=== PATIENT | female | born 1990 | race Caucasian/White ===

== ENCOUNTER 2016-11-18 08:36 | Emergency (ER) | payer OTHER ==
[~2016-11-18] VITALS: Ht 157.5 cm; Wt 79.0 kg
[~2016-11-18 08:36] MED LIST: CEPH-443 PO
[2016-11-18 08:42] VITALS: Ht 157.5 cm; Wt 79.0 kg
[2016-11-18] MEDS ORDERED: morphine 4 MG/ML VIAL IV STA (09:20)
[2016-11-18] MEDS ORDERED: ONDANSETRON 4 MG INJ IV STA (09:20)
--- NOTE | 2016-11-18 10:29 | RADRPT ---
PROCEDURE: OBSTETRICAL ULTRASOUND CLINICAL INDICATION: Vaginal Bleed () TECHNIQUE: Multiple sonographic images of the pelvis were obtained utilizing a transabdominal and endovaginal technique. The images were reviewed on a PACS workstation. COMPARISON: Obstetrical ultrasound from 10/21/2016 LMP: 08/15/2016 FINDINGS: An intrauterine gestational sac is again identified although the twin poles seen previously ar e no longer identified and there is new debris in the gestational sac. The right ovary is not visualized. The left ovary measures 3.0 x 2.5 x 2.2 cm. There is normal vascu lar flow in the left ovary. No significant ovarian lesions are seen. No significant pelvic free fluid is identified. IMPRESSION: An intrauterine gestational sac is again identified although the twin pole also seen previousl y are no longer present and there is new debris in the gestational sac. Findings are consistent wit h early failed twin . Continued sonographic follow-up is recommended. Nonvisualization of the right ovary. RPTAT: EE Physician Gerson Date Time Electronically viewed and signed by Physician Gerson on 11/18/2016 10:29 /
--- NOTE | 2016-11-18 10:32 | ERD ---
ER Documentation Chief Complaint Date/Time DATE: 11/18/16 TIME: 10:28 Chief Complaint 9-10 weeks pregnat with pelvic pain, us : demise HPI This is a 25-year-old who presents to the emergency department today for vaginal bleeding started this morning. Patient states that she was seen here in October and had a demise. She stated that she did not want a D&C at that time wanted to let the fetus pass on its own. She stated that the fetus had not passed yet and therefore she decided to proceed with a D&C however she has not been able to get an appointment with Dr. Thomas. She is here today because she has a lot of pelvic cramping. Is not taking any medication for the pain. Denies any fevers or chills or nausea or vomiting. ROS All systems reviewed and are negative except as per history of present illness. Medications Home Meds Active Scripts Cephalexin* (Keflex*) 500 Mg Capsule, 500 MG PO QID for 7 Days, CAP Prov:AUSTIN BENITEZ PA-C 11/18/16 Hydrocodone/Acetaminophen (Renwick 5-325 Tablet) 1 Each Tablet, 1 TAB PO Q6H Y for PAIN, #20 TAB Prov:AUSTIN BENITEZ PA-C 11/18/16 Cephalexin* (Keflex*) 500 Mg Capsule, 500 MG PO QID for 7 Days, CAP Prov:TALON DONALDSON PA-C 10/21/16 Allergies Allergies: Coded Allergies: No Known Allergy (Unverified , 10/21/16) PMhx/Soc Hx Alcohol Use: No Hx Substance Use: No Physical Exam Vitals Vital Signs Date Time Temp Pulse Resp B/P Pulse Ox O2 Delivery O2 Flow Rate FiO2 11/18/16 08:42 98.1 74 20 136/89 99 Physical Exam Const: Mild distress Head: Atraumatic Eyes: Normal Conjunctiva ENT: Normal External Ears, Nose and Mouth. Neck: Full range of motion..~ No meningismus. Resp: Clear to auscultation bilaterally Cardio: Regular rate and rhythm, no murmurs Abd: Soft, suprapubic tenderness, non distended. Normal bowel sounds. No Right lower quadrant pain. No left lower quadrant pain. Skin: No petechiae or rashes Back: No midline or flank tenderness Ext: No cyanosis, or edema Neur: Awake and alert Psych: Normal Mood and Affect Result Diagram: 11/18/16930 Results 24 hrs Laboratory Tests Test 11/18/16 09:27 11/18/16 09:31 Urine Bacteria FEW Urine Bilirubin NEGATIVE Urine Clarity BLOODY Urine Color RED Urine Epithelial Cells RARE Urine Glucose 0.1%% Urine Hemoglobin 3+ Urine Ketones 15 Urine Leukocyte Esterase NEGATIVE Urine Microscopic RBC >200/HPF Urine Microscopic WBC 0-2/HPF Urine Nitrite POSITIVE Urine Specific [place] 1.020 Urine Total Protein 2+ Urine Urobilinogen 1.0 E.U./dL Urine pH 6.0 Basophils # 0.110^3/ul Basophils % 0.4% Beta HCG, Quantitative 1007.8mIU/ml Eosinophils # 0.010^3/ul Eosinophils % 0.2% Hematocrit 40.8% Hemoglobin 13.9g/dl Lymphocytes # 1.910^3/ul Lymphocytes % 15.8% Mean Corpuscular Hemoglobin 30.5pg Mean Corpuscular Hemoglobin Concent 34.1g/dl Mean Corpuscular Volume 89.4fl Mean Platelet Volume 8.2fl Monocytes # 0.510^3/ul Monocytes % 3.8% Neutrophils # 9.610^3/ul Neutrophils % 79.8% Nucleated Red Blood Cells # 0.010^3/ul Nucleated Red Blood Cells % 0.0/100WBC Platelet Count 26481^3/UL Red Blood Count 4.5610^6/ul Red Cell Distribution Width 13.5% White Blood Count 12.110^3/ul Current Medications Medications (Trade) Dose Ordered Sig/Ada Route PRN Reason Start Time Stop Time Status Last Admin Dose Admin Morphine Sulfate (morphine) 4 mg ONCE STAT IV 11/18/16 09:20 11/18/16 09:22 DC 11/18/16 09:35 Ondansetron HCl (Zofran Inj) 4 mg ONCE STAT IV 11/18/16 09:20 11/18/16 09:22 DC 11/18/16 09:35 Patient: FLORENCIA ANGEL : 1990 Age: 26 Sex: F MR #: [id number] DOS: 11/18/16919 Ordering MD: AUSTIN BENITEZ PA-C Location: [facility] Room/Bed: PROCEDURE: OBSTETRICAL ULTRASOUND CLINICAL INDICATION: Vaginal Bleed () TECHNIQUE: Multiple sonographic images of the pelvis were obtained utilizing a transabdominal and endovaginal technique. The images were reviewed on a PACS workstation. COMPARISON: Obstetrical ultrasound from 10/21/2016 LMP: 08/15/2016 FINDINGS: An intrauterine gestational sac is again identified although the twin poles seen previously are no longer identified and there is new debris in the gestational sac. The right ovary is not visualized. The left ovary measures 3.0 x 2.5 x 2.2 cm. There is normal vascular flow in the left ovary. No significant ovarian lesions are seen. No significant pelvic free fluid is identified. IMPRESSION: An intrauterine gestational sac is again identified although the twin pole also seen previously are no longer present and there is new debris in the gestational sac. Findings are consistent with early failed twin . Continued sonographic follow-up is recommended. Nonvisualization of the right ovary. RPTAT: EE Physician Gerson Date Time Electronically viewed and signed by Georges Patel Physician on 11/18/2016 10:29 RA/ CC: AUSTIN BENITEZ PA-C Procedures/MDM This is 26-year-old female who presents to emergency department today complaining of vaginal bleeding that started this morning as well as lower abdominal cramping. Patient indicated that she was approximately 9010 weeks . Patient was seen here in the emergency department on October 21 and had a full OB workup after coming in for abdominal pain and cramping for a day. An obstetrical ultrasound at that time showed twin and treatment with no heart tones identified. The findings were compatible with failed . Patient also had a left ovarian cyst as well as a urinary tract infection. The patient's new complaints of vaginal bleeding today did obtain a complete OB workup with the exception of an Rh status as patient had been her previous visit and her blood type is O+. There is no indication for RhoGAM. She was given Keflex for her urinary tract infection Laboratory work shows a mildly elevated white blood cell count of 12.1. She is not anemic. Her platelets are within normal limits. Beta Quant hCG 1007.8 UA positive nitrates. Ultrasound shows an intrauterine gestational sac again identified although the twin pole also seen previously are no longer present and there is no debris in the gestational sac. Findings are consistent with early filter and . No significant pelvic free fluid is identified. Right Ovaries not visualized. Patient was requesting stronger than Tylenol here in the emergency department. She was given Zofran and morphine. In improved I went to recheck on the patient and patient's pain had improved. Patient indicated that she had more of a clot pass in the toilet. Discussed the patient with Dr. Abraham, laborist fire prevention captain and he feels that the patient may follow up with her PCP for further evaluation and management and possible D&C at that time if she does not continue to pass the rest of the fetus. I have explained this to the patient. I've explained To the patient that she may continue to have abdominal cramping as well as vaginal bleeding. She'll be given a prescription for Renwick for pain patient was already scheduled for a D&C previously. I will also give the patient a prescription for Keflex to treat her urinary tract infection. Patient did not treat her urinary tract infection with her last prescription that she had or even taking something from her primary care doctor. She was unsure what the medication was. At this time the patient is stable for discharge and outpatient management. Patient should follow up with their PCP in the next 1-2 days. They may return to the emergency department sooner for any persistent or worsening of symptoms. Patient understood and agreed with the plan. Departure Diagnosis: Primary Impression: Vaginal bleeding in patient at less than 20 weeks gestation Condition: AUSTIN Connors PA-C Nov 18, 2016 10:32
[2016-11-18 10:35] LABS: BASOPHIL # 0.1 10^3/ul (0.0-0.1); BASOPHILS % 0.4 % (0.0-2.0); EOSINOPHILS % 0.2 % (0.0-7.0); HEMATOCRIT 40.8 % (37.0-47.0); HEMOGLOBIN 13.9 g/dl (12.0-16.0); LYMPHOCYTES # 1.9 10^3/ul (0.8-2.9); LYMPHOCYTES % 15.8 % (15.0-51.0); MEAN CORPUSCULAR HEMOGLOBIN 30.5 pg (29.0-33.0); MEAN CORPUSCULAR HGB CONC 34.1 g/dl (32.0-37.0); MEAN CORPUSCULAR VOLUME 89.4 fl (82.0-101.0); MEAN PLATELET VOLUME 8.2 fl (7.4-10.4); MONOCYTE # 0.5 10^3/ul (0.3-0.9); MONOCYTES % 3.8 % (0.0-11.0); NEUTROPHIL # 9.6 10^3/ul (1.6-7.5); NEUTROPHILS % 79.8 % (39.0-77.0); PLATELET COUNT 235 10^3/UL (140-440); RED BLOOD COUNT 4.56 10^6/ul (4.20-5.40); RED CELL DISTRIBUTION WIDTH 13.5 % (11.5-14.5); UNCORRECTED WBC 12.1 10^3/ul (4.8-10.8); WHITE BLOOD COUNT 12.1 10^3/ul (4.8-10.8)
[2016-11-18 10:41] LABS: ADD UMIC YES; URINE BILIRUBIN (Dip) NEGATIVE (NEGATIVE); URINE BLOOD (Dip) 3+ (NEGATIVE); URINE COLOR RED (YELLOW); URINE KETONES (Dip) 15 (NEGATIVE); URINE LEUKOCYTE ESTERASE (Dip) NEGATIVE (NEGATIVE); URINE NITRITE (Dip) POSITIVE (NEGATIVE); URINE TOTAL PROTEIN (Dip) 2+ (NEGATIVE); URINE UROBILINOGEN (Dip) 1.0 E.U./dL (0.1-1.0)
[2016-11-18 10:43] LABS: CONDITION 1
[2016-11-18 11:15] LABS: URINE RBCS >200 /HPF (0)
[2016-11-18 11:16] LABS: BACTERIA,URINE FEW
[2016-11-18] MEDS ORDERED: HYDR-906 PO (11:43)
[2016-11-18] MEDS ORDERED: CEPH-443 PO (11:44)
[2016-11-18 12:11] VITALS: BP 132/82; PULSE 77; RESP 18; TEMP 98.1
== END 2016-11-18 12:00 | disposition home or self-care (01) ==
LOC: FTE 08:36
DX: O20.9 Hemorrhage in early pregnancy, unspecified (principal); R10.2 Pelvic and perineal pain; Z3A.10 10 weeks gestation of pregnancy
CPT/HCPCS: 36415; 76801; 76817; 81001; 84702; 85025; 96374; 96375; J2270; J2405; Z7502; 81003

== ENCOUNTER 2017-05-23 11:44 | Emergency (ER) | payer MEDICAID, OTHER ==
[~2017-05-23] VITALS: Ht 160 cm; Wt 74.5 kg
[~2017-05-23 11:44] MED LIST changes: +HYDR-906 PO
[2017-05-23 11:52] VITALS: Ht 160 cm; Wt 74.5 kg
--- NOTE | 2017-05-23 12:06 | ERA ---
ER Documentation Chief Complaint Date/Time DATE: 05/23/17 TIME: 12:03 Chief Complaint VB THIS AM. PT 7 WEEKS PREG. 3 PARA 0 HPI This is a otherwise healthy 26-year-old female who is 7 weeks . Patient states that she has been passing blood clots 1 day. Patient has had symptoms like this in the past with her other previous spontaneous abortions. Denies pain, fever, dysuria, nausea, vomiting, diarrhea, vaginal discharge, foul odor, change in fetus quickening, or identifiable patterns of symptoms. Patient does not have any other complications in the and describes no other associated manifestations. ROS All systems reviewed and are negative except as per history of present illness. Medications Home Meds Active Scripts Nitrofurantoin Monohyd Macrocr* (Macrobid*) 100 Mg Capsr, 100 MG PO BID for 14 Days, CAP Prov:VERONIQUE COOK PA-C 05/23/17 Cephalexin* (Keflex*) 500 Mg Capsule, 500 MG PO QID for 7 Days, CAP Prov:AUSTIN BENITEZ PA-C 11/18/16 Hydrocodone/Acetaminophen ([place] 5-325 Tablet) 1 Each Tablet, 1 TAB PO Q6H Y for PAIN, #20 TAB Prov:AUSTIN BENITEZ PA-C 11/18/16 Cephalexin* (Keflex*) 500 Mg Capsule, 500 MG PO QID for 7 Days, CAP Prov:TALON DONALDSON PA-C 10/21/16 Allergies Allergies: Coded Allergies: No Known Allergy (Unverified , 10/21/16) PMhx/Soc Hx Alcohol Use: No Hx Substance Use: No Physical Exam Vitals Vital Signs Date Time Temp Pulse Resp B/P Pulse Ox O2 Delivery O2 Flow Rate FiO2 05/23/17 11:52 99.0 66 19 128/71 99 Physical Exam Physical Const: Healthy-appearing. Well-nourished. Well-developed. No acute distress. Abd: No pelvic tenderness. Soft, non tender, non distended. No guarding, masses. Normal bowel sounds. No McBurney's point tenderness. Head: Normocephalic, Atraumatic. No sinus tenderness. Eyes: Non-injected; No scleral erythema, discharge or foreign body. EOMI and TYLER bilaterally. Ears: Normal External Ears, EACs clear, TM normal bilaterally without erythema. Nose: Normal nose without discharge, septal deviation, or sinus tenderness. Oral: No oral edema visualized. Mucous membranes moist and pink. Neck: No cervical lymphadenopathy, masses or goiter palpated. Full range of motion. Supple. Trachea midline. ~ No meningismus. Pulm: Good air movement in upper and lower respiratory tracts. No dyspnea, stridor, tripoding or drooling. Clear to auscultation bilaterally. Percussion unremarkable in all lung gray bilaterally. Cardio: Regular rate and rhythm; No murmurs, gallops or rubs auscultated. No JVD grossly observed. Radial and posterior tibial pulses 2+ bilaterally. No cyanosis. Capillary refill less than 2 seconds. MS: Normal motor strength, normal tone with gross examination. Skin: No petechiae or rashes. No ulcer, induration, jaundice. Good turgor. Back: No midline, flank or CVA tenderness. Ext: No cyanosis, edema or palpable cord. Normal movement of all extremities grossly observed. Neur: Awake, alert and oriented x3. Neurovascularly intact bilaterally. Psych: Active and alert. Normal Mood and Affect. Oriented x3. Result Diagram: 05/23/17 1211 Results 24 hrs Laboratory Tests Test 05/23/17 12:11 White Blood Count 11.510^3/ul Red Blood Count 4.3910^6/ul Hemoglobin 13.4g/dl Hematocrit 38.9% Mean Corpuscular Volume 88.6fl Mean Corpuscular Hemoglobin 30.5pg Mean Corpuscular Hemoglobin Concent 34.4g/dl Red Cell Distribution Width 13.0% Platelet Count 35305^3/UL Mean Platelet Volume 9.6fl Neutrophils % 75.1% Lymphocytes % 18.7% Monocytes % 5.4% Eosinophils % 0.3% Basophils % 0.3% Nucleated Red Blood Cells % 0.0/100WBC Neutrophils # 8.610^3/ul Lymphocytes # 2.110^3/ul Monocytes # 0.610^3/ul Eosinophils # 0.010^3/ul Basophils # 0.010^3/ul Nucleated Red Blood Cells # 0.010^3/ul Urine Color YELLOW Urine Clarity SLIGHTLY CLOUDY Urine pH 7.0 Urine Specific [place] 1.023 Urine Ketones 2+mg/dL Urine Nitrite POSITIVEmg/dL Urine Bilirubin NEGATIVEmg/dL Urine Urobilinogen NEGATIVEmg/dL Urine Leukocyte Esterase 1+Gamaliel/ul Urine Microscopic RBC 10/HPF Urine Microscopic WBC 5/HPF Urine Squamous Epithelial Cells FEW/HPF Urine Mucus FEW/HPF Urine Hemoglobin 2+mg/dL Urine Glucose NEGATIVEmg/dL Urine Total Protein NEGATIVEmg/dl Beta HCG, Quantitative 92592.0mIU/ml Procedures/MDM Patient is being evaluated and worked up for vaginal bleeding 1 day with clots as described in the history and physical exam. My current differential diagnosis includes, but is not limited to, the following: ectopic , pelvic inflammatory disease, nephrolithiasis, urinary tract infection, , and vaginitis, among others. The workup included CBC, CMP, type and screen, quantitative beta-hCG, urinalysis , urine culture, and an US. The US was read by the radiologist and given the following impression: IMPRESSION: Single live intrauterine consistent with a gestational age of 7 weeks , 2 days . The estimated date of delivery is 01/07/2018 . Dating by ultrasound is within 2 days of dating by LMP. - Beta-hCG - [address]30 Patient had a positive nitrites, leukocyte esterase, hematuria. Findings most consistent with lower urinary tract infection. Patient will be prescribed Macrobid. At this time, I have little suspicion for complete , inevitable , ectopic , placenta previa, pyelonephritis, blood vessel rupture, or PPROM. The current most likely diagnosis is lower urinary tract infection with hematuria and threatened . I have spoke with the patient regarding their condition and future management. They have verbally responded that they understand their status and treatment plan. The patients vitals are stable, and their current condition is appropriate for discharge. The patient will be given discharge instructions with return precautions. Departure Diagnosis: Primary Impression: Threatened Condition: Stable Additional Instructions: Follow up with your FIRE ENGINEER in 2 days. Be sure to take todays test results ( provided within this packet) with you to your doctors appointment in 2 days. If you do not have an FIRE ENGINEER, a handout of locations with contact information will be provided to you. Follow all the recommendations we have previously discussed and the following written recommendations: If symptoms change or worsen, return to the emergency department immediately. Do not put anything in your vagina. Do not have sex, douche, or use tampons; these actions may increase your risk for infection and miscarriage. Rest as directed. Do not exercise or engage in strenuous activities; such activities may cause labor or miscarriage. Your also be treating for urinary tract infection. Complete the course of antibiotics and finish the entire course. If you have any further questions, ask before you leave the hospital, or contact the medical provider managing your . VERONIQUE COOK PA-C May 23, 2017 12:06
[2017-05-23 12:17] LABS: ADD SCAN DIFF NO
[2017-05-23 12:23] LABS: BASOPHILS % 0.3 % (0.0-2.0); EOSINOPHILS % 0.3 % (0.0-7.0); HEMATOCRIT 38.9 % (37.0-47.0); HEMOGLOBIN 13.4 g/dl (12.0-16.0); LYMPHOCYTES # 2.1 10^3/ul (0.8-2.9); LYMPHOCYTES % 18.7 % (15.0-51.0); MEAN CORPUSCULAR HEMOGLOBIN 30.5 pg (29.0-33.0); MEAN CORPUSCULAR HGB CONC 34.4 g/dl (32.0-37.0); MEAN CORPUSCULAR VOLUME 88.6 fl (82.0-101.0); MEAN PLATELET VOLUME 9.6 fl (7.4-10.4); MONOCYTE # 0.6 10^3/ul (0.3-0.9); MONOCYTES % 5.4 % (0.0-11.0); NEUTROPHIL # 8.6 10^3/ul (1.6-7.5); NEUTROPHILS % 75.1 % (39.0-77.0); PLATELET COUNT 277 10^3/UL (140-415); RED BLOOD COUNT 4.39 10^6/ul (4.20-5.40); WHITE BLOOD COUNT 11.5 10^3/ul (4.8-10.8)
[2017-05-23 12:56] LABS: ADD UMIC YES; UR ASCORBIC ACID 20 mg/dL (NEGATIVE); UR BILIRUBIN (Dip) NEGATIVE (NEGATIVE); UR BLOOD (Dip) 2+ mg/dL (NEGATIVE); UR CLARITY SLIGHTLY CLOUDY (CLEAR); UR COLOR YELLOW (YELLOW); UR GLUCOSE (Dip) NEGATIVE (NEGATIVE); UR KETONES (Dip) 2+ mg/dL (NEGATIVE); UR LEUKOCYTE ESTERASE (Dip) 1+ Leu/ul (NEGATIVE); UR MUCUS FEW /HPF (NONE SEEN); UR NITRITE (Dip) POSITIVE (NEGATIVE); UR RBC 10 /HPF (0-5); UR SPECIFIC GRAVITY (Dip) 1.023 (1.003-1.030); UR SQUAMOUS EPITHELIAL CELL FEW /HPF (FEW); UR TOTAL PROTEIN (Dip) NEGATIVE (NEGATIVE); UR UROBILINOGEN (Dip) NEGATIVE (NEGATIVE)
--- NOTE | 2017-05-23 13:34 | RADRPT ---
PROCEDURE: OBSTETRICAL ULTRASOUND WITH ENDOVAGINAL IMAGES CLINICAL INDICATION: Vaginal Bleed () TECHNIQUE: Multiple sonographic images of the pelvis were obtained utilizing a transabdominal and endovaginal technique. The images were reviewed on a PACS workstation. COMPARISON: None. LMP: 03/31/2017 FINDINGS: There is a single live intrauterine with heart rate of 151 beats per minute, mean sa c diameter of 2.28 cm, and crown-rump length of 1.20 cm which is consistent with a gestational age o f 7 weeks, 2 days . The estimated date of delivery by ultrasound is 01/07/2018 . The estimated gestational age by LMP is 7 weeks, 4 days . The estimated date of delivery by LMP is 01/05/2018 . The right ovary measures 3.3 x 1.8 x 2.3 cm. The left ovary measures 3.3 x 2.1 x 2.5 cm. There is no rmal vascular flow in both ovaries. No significant ovarian lesions are seen. No significant pelvic free fluid is identified. IMPRESSION: Single live intrauterine consistent with a gestational age of 7 weeks, 2 days . The estimated date of delivery is 01/07/2018 . Dating by ultrasound is within 2 days of dating by LMP. RPTAT: EE Physician Gerson Date Time Electronically viewed and signed by Physician Gerson on 05/23/2017 13:34 /
[2017-05-23] MEDS ORDERED: NITR-58 PO (13:44)
== END 2017-05-23 14:39 | disposition home or self-care (01) ==
LOC: FTE 11:44
DX: O20.0 Threatened abortion (principal); Z3A.01 Less than 8 weeks gestation of pregnancy
CPT/HCPCS: 36415; 76801; 81001; 84702; 85025; 86900; 86901

== ENCOUNTER 2017-06-19 15:18 | Emergency (ER) | payer MEDICAID ==
[~2017-06-19] VITALS: Ht 160 cm; Wt 71.5 kg
[~2017-06-19 15:18] MED LIST changes: +NITR-58 PO
[2017-06-19 15:28] VITALS: Ht 160 cm; Wt 71.5 kg
--- NOTE | 2017-06-19 16:39 | RADRPT ---
PROCEDURE: US OB. CLINICAL INDICATION: Vaginal bleeding TECHNIQUE: Transabdominal views of the pelvis are available for review. COMPARISON: 05/23/17 FINDINGS: There is a single intrauterine gestation with the crown-rump length measuring 5.2 cm, corresponding to a gestational age of 11 weeks and 6 days. The heart rate is noted at 156 bpm. The right ovary measures 3.2 x 1.9 x 2.0 cm. The left ovary was not seen. There is no free fluid. RPTAT: AA IMPRESSION: Single live intrauterine with an estimated gestational age of 11 weeks and 6 days, based o n ultrasound measurements. JANNY based on ultrasound measurements is 01/05/18. .Con Looney MD, MD Date Time Electronically viewed and signed by .Con Looney MD, on 06/19/2017 16:39 .S/
[2017-06-19 16:53] LABS: BASOPHILS % 0.3 % (0.0-2.0); EOSINOPHILS # 0.1 10^3/ul (0.0-0.5); EOSINOPHILS % 0.5 % (0.0-7.0); HEMATOCRIT 37.7 % (37.0-47.0); HEMOGLOBIN 13.1 g/dl (12.0-16.0); LYMPHOCYTES # 2.3 10^3/ul (0.8-2.9); LYMPHOCYTES % 17.5 % (15.0-51.0); MEAN CORPUSCULAR HEMOGLOBIN 30.2 pg (29.0-33.0); MEAN CORPUSCULAR HGB CONC 34.7 g/dl (32.0-37.0); MEAN CORPUSCULAR VOLUME 86.9 fl (82.0-101.0); MEAN PLATELET VOLUME 9.8 fl (7.4-10.4); MONOCYTES % 7.7 % (0.0-11.0); NEUTROPHILS % 73.7 % (39.0-77.0); PLATELET COUNT 259 10^3/UL (140-415); RED BLOOD COUNT 4.34 10^6/ul (4.20-5.40); RED CELL DISTRIBUTION WIDTH 13.1 % (11.5-14.5); WHITE BLOOD COUNT 12.9 10^3/ul (4.8-10.8)
[2017-06-19 17:03] LABS: ADD UMIC YES; UR ASCORBIC ACID 40 mg/dL (NEGATIVE); UR BACTERIA FEW /HPF (NONE SEEN); UR BILIRUBIN (Dip) NEGATIVE (NEGATIVE); UR BLOOD (Dip) 3+ mg/dL (NEGATIVE); UR CLARITY CLOUDY (CLEAR); UR COLOR YELLOW (YELLOW); UR GLUCOSE (Dip) 3+ mg/dL (NEGATIVE); UR KETONES (Dip) TRACE mg/dL (NEGATIVE); UR LEUKOCYTE ESTERASE (Dip) 2+ Leu/ul (NEGATIVE); UR MUCUS FEW /HPF (NONE SEEN); UR NITRITE (Dip) NEGATIVE (NEGATIVE); UR RBC 9 /HPF (0-5); UR SQUAMOUS EPITHELIAL CELL MODERATE /HPF (FEW); UR TOTAL PROTEIN (Dip) 1+ mg/dl (NEGATIVE); UR UROBILINOGEN (Dip) 1+ mg/dL (NEGATIVE)
[2017-06-19] MEDS ORDERED: CEPH-443 PO (17:10)
--- NOTE | 2017-06-19 17:20 | ERD ---
ER Documentation Chief Complaint Date/Time DATE: 06/19/17 TIME: 17:10 Chief Complaint PT with VB and 12 weeks , since yesterday. HPI Patient is a 27-year-old female approximately 12 weeks , , presents emergency department for concerns of vaginal bleeding which started yesterday. Patient states she is having occasional blood clot passage. Patient denies using any pads. Patient states he does have on and off suprapubic pain. Denies any fevers, chills, nausea, vomiting, dysuria, frequency, urgency or hematuria. Patient states her last menstrual period was on 03/31/17. Patient's ELECTRODYNAMICIST is Dr. Miller. ROS All systems reviewed and are negative except as per history of present illness. Medications Home Meds Active Scripts Cephalexin* (Keflex*) 500 Mg Capsule, 500 MG PO TID for 7 Days, CAP Prov:LIO RYAN PA-C 06/19/17 Nitrofurantoin Monohyd Macrocr* (Macrobid*) 100 Mg Capsr, 100 MG PO BID for 14 Days, CAP Prov:VERONIQUE COOK PA-C 05/23/17 Cephalexin* (Keflex*) 500 Mg Capsule, 500 MG PO QID for 7 Days, CAP Prov:AUSTIN BENITEZ PA-C 11/18/16 Hydrocodone/Acetaminophen ([place] 5-325 Tablet) 1 Each Tablet, 1 TAB PO Q6H Y for PAIN, #20 TAB Prov:AUSTIN BENITEZ PA-C 11/18/16 Cephalexin* (Keflex*) 500 Mg Capsule, 500 MG PO QID for 7 Days, CAP Prov:TALON DONALDSON PA-C 10/21/16 Allergies Allergies: Coded Allergies: No Known Allergy (Unverified , 10/21/16) PMhx/Soc Medical and Surgical Hx: pt denies Medical Hx, pt denies Surgical Hx Hx Alcohol Use: No Hx Substance Use: No Hx Tobacco Use: Yes Smoking Status: Current every day smoker Physical Exam Vitals Vital Signs Date Time Temp Pulse Resp B/P Pulse Ox O2 Delivery O2 Flow Rate FiO2 06/19/17 18:31 98.3 72 16 125/72 97 06/19/17 15:28 97.9 78 20 132/75 97 Physical Exam GENERAL: Well-developed, well-nourished female. Appears in no acute distress. Speaking in full sentences. HEAD: Normocephalic, atraumatic. EYES: Pupils are equally reactive bilaterally. EOMs grossly intact. No conjunctival erythema. ENT: Moist mucous membranes. No uvula deviation. No kissing tonsils. NECK: Supple. No meningismus. Normal range of motion of the neck. LUNG: Clear to auscultation bilaterally. No rhonchi, wheezing, rales or coarse breath sounds. HEART: Regular rate and rhythm. No murmurs, rubs or gallops. ABDOMEN: No scars, ecchymosis or rashes noted. Soft, nontender, and nondistended. Positive bowel sounds in all four quadrants. No rebound tenderness , no guarding. (-) McBurney's point tenderness. No CVA tenderness. EXTREMITIES: Equal pulses bilaterally. No peripheral clubbing, cyanosis or edema. No unilateral leg swelling. NEUROLOGIC: Alert and oriented. Moving all four extremities without any difficulty. Normal speech. Steady gait. SKIN: Normal color. Warm and dry. No rashes or lesions. Result Diagram: 06/19/17 1600 Results 24 hrs Laboratory Tests Test 06/19/17 16:00 06/19/17 16:40 White Blood Count 12.910^3/ul Red Blood Count 4.3410^6/ul Hemoglobin 13.1g/dl Hematocrit 37.7% Mean Corpuscular Volume 86.9fl Mean Corpuscular Hemoglobin 30.2pg Mean Corpuscular Hemoglobin Concent 34.7g/dl Red Cell Distribution Width 13.1% Platelet Count 52769^3/UL Mean Platelet Volume 9.8fl Neutrophils % 73.7% Lymphocytes % 17.5% Monocytes % 7.7% Eosinophils % 0.5% Basophils % 0.3% Nucleated Red Blood Cells % 0.0/100WBC Neutrophils # (Manual) 9.510^3/ul Lymphocytes # 2.310^3/ul Monocytes # 1.010^3/ul Eosinophils # 0.110^3/ul Basophils # 0.010^3/ul Nucleated Red Blood Cells # 0.010^3/ul Beta HCG, Quantitative 97477.0mIU/ml Urine Color YELLOW Urine Clarity CLOUDY Urine pH 7.0 Urine Specific Bruin 1.030 Urine Ketones TRACEmg/dL Urine Nitrite NEGATIVEmg/dL Urine Bilirubin NEGATIVEmg/dL Urine Urobilinogen 1+mg/dL Urine Leukocyte Esterase 2+Gamaliel/ul Urine Microscopic RBC 9/HPF Urine Microscopic WBC 30/HPF Urine Squamous Epithelial Cells MODERATE/HPF Urine Bacteria FEW/HPF Urine Mucus FEW/HPF Urine Hemoglobin 3+mg/dL Urine Glucose 3+mg/dL Urine Total Protein 1+mg/dl Procedures/MDM ED COURSE: The patient was stable throughout ED course. I kept the patient and/or family informed of laboratory and diagnostic imaging results throughout the ED course. DIAGNOSTIC IMAGING: Read by radiologist. DIAGNOSTIC IMAGING REPORT Patient: FLORENCIA ANGEL : 1990 Age: 27 Sex: F MR #: [id number] DOS: 06/19/17 1559 Ordering MD: LIO RYAN PA-C Location: [facility] Room/Bed: PROCEDURE: US OB. CLINICAL INDICATION: Vaginal bleeding TECHNIQUE: Transabdominal views of the pelvis are available for review. COMPARISON: 05/23/17 FINDINGS: There is a single intrauterine gestation with the crown-rump length measuring 5.2 cm, corresponding to a gestational age of 11 weeks and 6 days. The heart rate is noted at 156 bpm. The right ovary measures 3.2 x 1.9 x 2.0 cm. The left ovary was not seen. There is no free fluid. RPTAT: AA IMPRESSION: Single live intrauterine with an estimated gestational age of 11 weeks and 6 days, based on ultrasound measurements. JANNY based on ultrasound measurements is 01/05/18. .Con Looney MD, Date Time Electronically viewed and signed by .Con Looney MD, MD on 06/19/2017 16: 39 .S/ CC: LIO RYAN PA-C MEDICAL DECISION MAKING: This is a 27-year-old female who presents to the emergency department for concerns of vaginal bleeding x 1 day. Vital signs were reviewed. Patient was afebrile. Patient was hemodynamically stable. Quantitative b-HCG was 86953. Patient was O+. CBC showed no evidence of severe anemia. Patient's WBC count was noted to be 12.9. Urinalysis did show positive WBCs and leukocyte esterase. Pelvic US showed Single live intrauterine with an estimated gestational age of 11 weeks and 6 days, based on ultrasound measurements. JANNY based on ultrasound measurements is 01/05/18. Given these findings, the patient's presentation is most consistent with threatened and UTI. I have a much lower clinical concern for ectopic , ruptured ectopic , molar , subchorionic hematoma, spontaneous , incomplete , complete , missed , placental abruption, placental previa, vasa previa, uterine rupture, anembyronic . Low suspicion for pyelonephritis, nephrolithiasis. PRESCRIPTIONS: Keflex DISCHARGE: At this time, patient is stable for discharge and outpatient management. I had a conversation at length with the patient about the concerns of vaginal bleeding during the 1st trimester of . Patient and/or family understands that her vaginal bleeding can be a normal finding or a sign of miscarriage. I have instructed the patient to follow-up with her OBGYN in 1-2 days for further monitoring including a repeat b-HCG level. I have instructed the patient to promptly return to the ER at any time for any new or worsening symptoms including increased pain, nausea, vomiting, continued bleeding, weakness, syncope or fever. The patient and/or family expressed understanding of and agreement with this plan. All questions were answered. Home care instructions were provided. Departure Diagnosis: Primary Impression: Vaginal bleeding in patient at less than 20 weeks ges... Additional Impression: UTI (urinary tract infection) Condition: Stable Patient Instructions: Bleeding During Early Referrals: [facility] YOU HAVE RECEIVED A MEDICAL SCREENING EXAM AND THE RESULTS INDICATE THAT YOU DO NOT HAVE A CONDITION THAT REQUIRES URGENT TREATMENT IN THE EMERGENCY DEPARTMENT. FURTHER EVALUATION AND TREATMENT OF YOUR CONDITION CAN WAIT UNTIL YOU ARE SEEN IN YOUR DOCTORS OFFICE WITHIN THE NEXT 1-2 DAYS. IT IS YOUR RESPONSIBILITY TO MAKE AN APPOINTMENT FOR FOLOW-UP CARE. IF YOU HAVE A PRIMARY DOCTOR --you should call your primary doctor and schedule an appointment IF YOU DO NOT HAVE A PRIMARY DOCTOR YOU CAN CALL OUR PHYSICIAN REFERRAL HOTLINE AT IF YOU CAN NOT AFFORD TO SEE A PHYSICIAN YOU CAN CHOSE FROM THE FOLLOWING [facility] CLINICS [facility] [address] [facility] [address] [facility] [address] [facility] [address] [facility] [phone] [address] [facility]. [facility] [address] [facility]. [facility] YOU HAVE RECEIVED A MEDICAL SCREENING EXAM AND THE RESULTS INDICATE THAT YOU DO NOT HAVE A CONDITION THAT REQUIRES URGENT TREATMENT IN THE EMERGENCY DEPARTMENT. FURTHER EVALUATION AND TREATMENT OF YOUR CONDITION CAN WAIT UNTIL YOU ARE SEEN IN YOUR DOCTORS OFFICE WITHIN THE NEXT 1-2 DAYS. IT IS YOUR RESPONSIBILITY TO MAKE AN APPOINTMENT FOR FOLOW-UP CARE. IF YOU HAVE A PRIMARY DOCTOR --you should call your primary doctor and schedule and appointment IF YOU DO NOT HAVE A PRIMARY DOCTOR YOU CAN CALL OUR PHYSICIAN REFERRAL HOTLINE AT . IF YOU CAN NOT AFFORD TO SEE A PHYSICIAN YOU CAN CHOSE FROM THE FOLLOWING [facility] INSTITUTIONS: [address] [place] [address] [facility] [address] [place] [address] [facility] [address] [place] [address] ELECTRODYNAMIC[place] [address] [facility] [address] [place], [place] [phone] OFFICE FAX KALYANI ECHEVARRIA [address] [place], [place] [phone] [place] [address] [place], [place] [phone] [facility] [address] [facility], [address] [address] [address] [address] [place] [phone] [facility] [address] [place] [address] [address] [facility] [id number] - [address] MISHRA, DONOVAN [address], [facility] [phone] [place], [place] [address] [facility]. [address], [facility] [phone] [place], [place] [address] [place] [address] Additional Instructions: Call your primary care doctor/OBGYN TOMORROW for an appointment during the next 1-2 days.See the doctor sooner or return here if your condition worsens before your appointment time. Return to the ED/ see your OBGYN in 2 days for repeat BHCG. LIO RYAN PA-C Jun 19, 2017 17:20
[2017-06-19 18:31] VITALS: BP 125/72; PULSE 72; RESP 16; TEMP 98.3
== END 2017-06-19 18:34 | disposition home or self-care (01) ==
LOC: FTE 15:18
DX: O20.9 Hemorrhage in early pregnancy, unspecified (principal); O23.41 Unspecified infection of urinary tract in pregnancy, first trimester; O99.331 Smoking (tobacco) complicating pregnancy, first trimester; F17.210 Nicotine dependence, cigarettes, uncomplicated
CPT/HCPCS: 76801; 76817; 81001; 84702; 85025; 86900; 86901; Z7502; 99283

== ENCOUNTER 2017-12-30 17:21 | Inpatient (IN) | END 2018-01-02 12:35 | disposition home or self-care (01) | DRG 766 ==